=== PATIENT | male | born 2005 | race Caucasian/White ===

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

== ENCOUNTER 2025-03-25 19:01 | Emergency (ER) | payer OTHER, SELFPAY ==
[2025-03-25 19:05] VITALS: BP 139/66; BP 139/99; BMI 30.4
--- NOTE | 2025-03-25 19:11 | ED.GENMED ---
History of Present Illness
General
Chief Complaint: Seizure
Source: patient, family and ambulance crew
Exam Limitations: clinical condition
Time Seen by Provider: 03/25/25 19:05
Nursing documentation reviewed up to this point in time: agreed with
History of Present Illness
History of Present Illness:
Note:
CHIEF COMPLAINT(S)
Recurrent seizures
HISTORY OF PRESENT ILLNESS
The patient is a 19-year-old male with a known history of Irving-Gastaut syndrome, who presents with recurrent seizures. The patient typically experiences 30 to 50 seizures per day, including daily drop seizures. Recently, the patient has been
having increasingly frequent generalized tonic-clonic seizures (previously referred to as grand mal seizures) that occur [id number]. For the last hour, the patient has been experiencing these generalized seizures lasting approximately 30 seconds,
followed by a relaxation period, only to have another seizure 15 minutes later. The intensity and frequency are unusual for the patient.
PAST MEDICAL AND SURIGICAL HISTORY
The patient has Irving-Gastaut syndrome and has had a vagus nerve stimulator (VNS) inserted, which was turned off three weeks ago.
MEDICATIONS
The patient is currently taking clonazepam, administered both in the morning and at night, and diazepam, dosed at 7 milligrams four times a day. The patient also uses valproic acid 10 milligrams rectally during generalized tonic-clonic seizures as
needed.
REVIEW OF SYSTEMS
- Neurological: Recurrent seizures, increased frequency of generalized tonic-clonic seizures.
PHYSICAL EXAM
General: Alert, no acute distress.
Skin: Warm, dry.
Head: Normocephalic, atraumatic.
Neck: Supple, trachea midline.
Eye Ears, nose, mouth and throat: Oral mucosa moist.
Cardiovascular: Normal peripheral perfusion, No edema.
Respiratory: Respirations are non-labored.
Gastrointestinal : Abdomen nondistended
Back: Normal range of motion, Normal alignment.
Musculoskeletal: Normal ROM, normal strength.
Neurological: Alert , follows commands, No focal neurological deficit observed.
Psychiatric: Cooperative.
PLAN
Adjust medications as needed to control seizure activity. Consider re-evaluating the status and settings of the VNS. Recommend follow-up with neurology for further management and optimization of seizure control.
DIFFERENTIAL DIAGNOSIS
The Differential Diagnosis includes, in no particular order and is not limited to:
- Irving-Gastaut Syndrome exacerbation
- Breakthrough seizures due to medication non-compliance or subtherapeutic levels
- Vagus nerve stimulator malfunction or mismanagement
- Infection-related increase in seizure activity
- Electrolyte imbalance
- Structural brain lesion
- Metabolic disorder
- Toxic ingestion
- Psychogenic non-epileptic seizures (PNES)
- Sleep deprivation or stress-related seizure activity
My independent EKG interpretation is:
- Time of EKG: Not specified
- Rhythm: Normal sinus rhythm
- Heart Rate: 100 bpm
- [place] Interval: Normal
- QRS Duration: Normal
- QT Interval: Normal
- [place]: Normal
- Abnormalities: None observed
SUMMARY OF ENCOUNTER
The patient, a 19-year-old male with known Samuel-Gastaut syndrome, presented with recurrent seizures, reporting an increased frequency of generalized tonic-clonic seizures. In the emergency department, the patient was found to be at his baseline
and in no acute distress. After evaluation, it was determined that there were no acute changes necessary to his current medical regimen.
DISPOSITION
The patient is to follow up with Neurology Dr. Crain on Friday as scheduled.
MANAGEMENT OF THE PATIENTS CARE WAS DISCUSSED WITH
Discussion was held with Dr. Clinton, a fellow at [facility], who recommended no changes in the patients regimen at this time.
PLAN
To continue current medications and follow up with Neurology Dr. Kumar on Friday.
MEDICAL DECISION MAKING
- Number and Complexity of Problems Addressed: Chronic conditions affecting care are Irving-Gastaut syndrome. Differential diagnosis includes exacerbation of Irving-Gastaut Syndrome, breakthrough seizures due to medication non-compliance or
subtherapeutic levels, Vagus nerve stimulator malfunction or mismanagement, infection-related increase in seizure activity, electrolyte imbalance, structural brain lesion, metabolic disorder, toxic ingestion, psychogenic non-epileptic seizures
(PNES), sleep deprivation or stress-related seizure activity.
- Data:
- Category 3: Management of the patients care discussed with Dr. Clinton, a fellow at [facility].
DIAGNOSIS
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
Past History
Past History
ED Past Medical History: Other (Samuel-Gastaut syndrome, seizure disorder, developmental delay)
Social History
Tobacco: Non-smoker
Alcohol: None
Drug: None
Personal: Single
Living: with family
Employment: Student
Phy Exam
Physical Exam
Physical Exam:
.
Course
Orders/Labs/Results
Orders:
Orders
03/25/25 19:05
Electrocardiogram (*1) Urgent
Reason for Study: Other
Other Reason for Exam: seizure
EKG- Treatment ONCE
IV Insert/Care/Rem.- Treatment PRN
03/25/25 19:12
Complete Blood Count/With Diff Urgent
Comprehensive Metabolic Panel Urgent
Magnesium Urgent
Abnormal Lab Results
03/25/25 03/25/25
19:12 19:14
WBC 13.8 H 10^3/uL
(4.8-10.8)
Absolute Neuts (auto) 11.0 H 10^3/uL
(1.4-6.5)
Neutrophils % 79.7 H %
(42.2-75.2)
Lymphocytes % 13.6 L %
(20.5-51.1)
Glucose 105 H mg/dl
(70-99)
ALT 51 H U/L
(0-50)
POC Glucose 102 H mg/dl
(70-99)
03/25/25 19:12
03/25/25 19:12
Vital Signs
Initial and Last Documented VS:
Initial Vital Signs
Temp Pulse Resp BP Pulse Ox
98.4 F 90 24 139/99 94
03/25/25 19:05 03/25/25 19:05 03/25/25 19:05 03/25/25 19:05 03/25/25 19:05
Last Documented Vital Signs
Temp Pulse Resp BP Pulse Ox
98.4 F 87 21 113/58 96
03/25/25 19:05 03/25/25 21:45 03/25/25 21:45 03/25/25 21:00 03/25/25 21:45
*Pulse Oximetry
SaO2: 94
Oxygen Mode of Delivery: Room air
Patient hypoxic: no
*Critical Care Note
Total Time (30-74mins, 75-104mins- exclusive of procedures): Not Applicable
ED Attending Note
-
Portions of this chart may have been created with voice recognition software.� Occasional wrong word or��sound alike� substitutions may have occurred due to the inherent limitations of voice recognition software.
Discharge Plan
Departure
Patient Disposition: Home (Routine Discharge)
Date of Disposition: 03/25/25
Time of Disposition: 21:15
Patient with high blood pressure during this ER visit?: No
Condition: Good
Discharge Problem:
Seizure
Instructions: Seizures, Adult (DC)
Referrals:
NONE,* [Family Provider, Internal Medicine]
Christiano Crain MD [Non-Admitting Privileges] - Keep scheduled appt
Activity Restrictions/Additional Instructions:
Use clonazepam 1 mg daily, up to twice a day.
Interventions
Interventions:
*Risk Screen - Suicide Last Done: 03/25/25 19:05
*General Assessment Last Done: 03/25/25 19:05
*Neglect/Abuse Screening Last Done: 03/25/25 19:05
*ED- Fall Risk Assessment Last Done: 03/25/25 19:05
*ED COVID-19 Vaccine History Last Done: 03/25/25 19:05
*ED Influenza Vaccine History Last Done: 03/25/25 19:05
*Nursing Disposition Last Done: 03/25/25 21:59
ED- Cardiac Assessment Last Done: 03/25/25 19:20
ED- Neurological Assessment Last Done: 03/25/25 19:20
ED- Pulmonary Assessment Last Done: 03/25/25 19:20
Discharge Date and Time
Discharge Date/Time: 03/25/25 22:00
Print Language: CHINESE
[2025-03-25 19:16] LABS: Glucose - Point of Care 102 mg/dl (70-99)
[2025-03-25 19:21] LABS: Hematocrit 44.8 % (39.0-52.0); Hemoglobin 15.8 g/dL (13.0-18.0); Mean Corp Hgb Conc. 35.3 g/dL (33.0-37.0); Mean Corpuscular Volume 86.7 fL (80.0-94.0); Nucleated Red Blood Cells % 0 % (-); Platelet Count 263 10^3/uL (130-400); Red Cell Dist. Width 11.8 % (11.5-14.5)
[2025-03-25 19:46] LABS: ALT (SGPT) 51 U/L (0-50); AST (SGOT) 22 U/L (17-59); Albumin 4.7 g/dl (3.5-5.0); Alkaline Phosphatase 88 U/L (38-126); Blood Urea Nitrogen 14 mg/dl (9-20); Calcium 9.7 mg/dl (8.4-10.2); Carbon Dioxide 24 mmol/L (22-30); Chloride 106 mmol/L (98-107); Estimated Creatinine Clearance > 125 ml/min; Glucose 105 mg/dl (70-99); Magnesium 2.3 mg/dl (1.6-2.3); Potassium 4.3 mmol/L (3.5-5.1); Sodium 139 mmol/L (135-145); Total Protein 7.2 g/dl (6.3-8.2); eGFR > 60.00
[2025-03-25 20:00] VITALS: BP 117/66
[2025-03-25 21:00] VITALS: BP 113/58
== END 2025-03-25 22:00 | disposition home or self-care (01) ==
LOC: EMR 19:01
PROVIDERS: EMERGENCY PHYSICIAN Emergency Medicine
DX: G40.812 Lennox-Gastaut syndrome, not intractable, without status epilepticus (principal); Z79.899 Other long term (current) drug therapy
CPT/HCPCS: 99283; 80053; 82962; 83735; 85025; 93005